=== PATIENT | female | born 1990 | race Caucasian/White ===

== ENCOUNTER 2017-06-21 19:09 | Emergency (ER) | payer OTHER ==
[~2017-06-21] VITALS: Ht 170.2 cm; Wt 72.0 kg
[2017-06-21 19:21] VITALS: BP 106/73; PULSE 57; RESP 14; O2SAT 100
--- NOTE | 2017-06-21 19:43 | PD ---
HPI Chief Complaint: Medical Clearance Time Seen by Provider: 19:22 Travel History International Travel<30 days: No Contact w/Intl Traveler<30days: No Traveled to known affect area: No History of Present Illness HPI Patient is a 26-year-old female presenting to the emergency department for medical clearance, patient is currently in the custody of law enforcement. She was brought in to have an evaluation after striking her head on the wall of the police vehicle. Patient reports a frontal headache, she rates her pain a 7 out of 10 and states as aching and throbbing. She also reports feeling dizzy. There was no loss of consciousness, no nausea, no vomiting. Patient denies any significant past medical history. PFSH Past Medical History Bipolar Disorder: Yes Anxiety: Yes Depression: Yes Diminished Hearing: No Psychiatric: Yes (MANIC DEPRESSIVE DISORDER ) ?: Unknown : 5 Para: 4 Miscarriage: 1 Past Surgical History Section: Yes ( X 4 ) Social History Alcohol Use: No Tobacco Use: No Substance Use: No (DENIES ) Allergies-Medications (Allergen,Severity, Reaction): Coded Allergies: No Known Allergies (Unverified , 06/21/17) Reported Meds & Prescriptions Reported Meds & Active Scripts Active No Active Prescriptions or Reported Medications Review of Systems Except as stated in HPI: all other systems reviewed are Neg General / Constitutional: Positive: Fever Eyes: No: Blurred Vision HENT: Positive: Headaches, Neck Pain Neurologic: Positive: Dizziness Physical Exam Narrative GENERAL: Well-developed, well-nourished, alert female. Resting comfortably in no acute distress. SKIN: Warm and dry. Small contusion to mid forehead HEAD: Atraumatic. Normocephalic. EYES: Pupils equal and round, reactive to light and accommodation. No scleral icterus. No injection or drainage. Extraocular movements are intact. ENT: No nasal bleeding or discharge. Mucous membranes pink and moist. NECK: Trachea midline. No JVD. Tenderness to palpation of her cervical spine and paraspinal musculature and cervical region. Full range of motion with rotation, flexion and extension. No meningeal signs noted. CARDIOVASCULAR: Regular rate and rhythm. RESPIRATORY: No accessory muscle use. Clear to auscultation. Breath sounds equal bilaterally. GASTROINTESTINAL: Abdomen soft, non-tender, nondistended. Hepatic and splenic margins not palpable. MUSCULOSKELETAL: Extremities without clubbing, cyanosis, or edema. No obvious deformities. NEUROLOGICAL: Awake and alert. No obvious cranial nerve deficits. Motor grossly within normal limits. Five out of 5 muscle strength in the arms and legs. Normal speech. PSYCHIATRIC: Appropriate mood and affect; insight and judgment normal. Data Data Last Documented VS Vital Signs Date Time Temp Pulse Resp B/P (MAP) Pulse Ox O2 Delivery O2 Flow Rate FiO2 06/21/17 20:16 98.1 06/21/17 19:21 57 14 106/73 (84) [address] Brain W/O Iv Contrast(Rout) (06/21/17 ) Ct Cerv Spine W/O Contrast (06/21/17 ) Ibuprofen (Motrin) (06/21/17 19:45) Ed Urine Pregnancytest Poc (06/21/17 19:35) MDM Medical Decision Making Medical Screen Exam Complete: Yes Emergency Medical Condition: Yes Interpretation(s) Vital Signs Date Time Temp Pulse Resp B/P (MAP) Pulse Ox O2 Delivery O2 Flow Rate FiO2 06/21/17 19:21 57 14 106/73 (84) 100 Differential Diagnosis Contusion versus concussion versus hemorrhage versus strain versus fracture versus other Narrative Course Patient is a 26-year-old female presenting for evaluation of possible head injury after striking her head while in police custody. Patient is neurologically intact, there is a small contusion to her forehead. CT scan ordered and pending, ibuprofen ordered for pain. Patient's vital signs are stable. Care of patient transferred to Dr. Feldman at the end of my shift. He will determine patients disposition. Scripts No Active Prescriptions or Reported Meds Maria Alejandra Bravo Jun 21, 2017 19:43
[2017-06-21] MEDS ORDERED: IBUPROFEN 800 MG TAB PO ONE (19:45)
[2017-06-21 20:15] VITALS: TEMP 97.8
[2017-06-21 20:16] VITALS: TEMP 98.1
--- NOTE | 2017-06-21 21:45 | RADRPT ---
EXAM DATE/TIME: 06/21/2017 21:16 [facility] COMPARISON: CT BRAIN W/O CONTRAST, September 26, 2016, 1:04. INDICATIONS : Trauma, hit head on metal plate multiple times. RADIATION DOSE: 33.17 CTDIvol (mGy) MEDICAL HISTORY : None SURGICAL HISTORY : section. ENCOUNTER: Initial ACUITY: 1 day PAIN SCALE: 5/10 LOCATION: cranial TECHNIQUE: Multiple contiguous axial images were obtained of the head. Using automated exposure control and adj ustment of the mA and/or kV according to patient size, radiation dose was kept as low as reasonably a chievable to obtain optimal diagnostic quality images. DICOM format image data is available electro nically for review and comparison. FINDINGS: CEREBRUM: The ventricles are normal for age. No evidence of midline shift, mass lesion, hemorrhage or acute in farction. No extra-axial fluid collections are seen. POSTERIOR FOSSA: The cerebellum and brainstem are intact. The 4th ventricle is midline. The cerebellopontine angle i s unremarkable. EXTRACRANIAL: The visualized portion of the orbits is intact. SKULL: The calvaria is intact. No evidence of skull fracture. CONCLUSION: No acute disease. Boris Jay MD on June 21, 2017 at 21:42 Board Certified Radiologist. This report was verified electronically.
--- NOTE | 2017-06-21 21:47 | RADRPT ---
EXAM DATE/TIME: 06/21/2017 21:16 [facility] COMPARISON: No previous studies available for comparison. INDICATIONS : Trauma, hit head multiple times on metal plate. RADIATION DOSE: 15.21 CTDIvol (mGy) MEDICAL HISTORY : None SURGICAL HISTORY : section. ENCOUNTER: Initial ACUITY: 1 day PAIN SCALE: 2/10 LOCATION: neck TECHNIQUE: Volumetric scanning of the cervical spine was performed. Multiplanar reconstructions in the sagittal, coronal and oblique axial planes were performed. Using automated exposure control and adjustment o f the mA and/or kV according to patient size, radiation dose was kept as low as reasonably achievable to obtain optimal diagnostic quality images. DICOM format image data is available electronically f or review and comparison. FINDINGS: Axial tomograms with multiplanar reformats were performed of the cervical spine without contrast. The craniocervical and cervical vertebral body alignment is intact. Vertebral bodies and posterior el ements are intact. The facet joints are satisfactory aligned. There are no soft tissue abnormalities. CONCLUSION: Normal CT of the cervical spine. Boris Jay MD on June 21, 2017 at 21:43 Board Certified Radiologist. This report was verified electronically.
--- NOTE | 2017-06-21 21:53 | PD ---
Data Data Last Documented VS Vital Signs Date Time Temp Pulse Resp B/P (MAP) Pulse Ox O2 Delivery O2 Flow Rate FiO2 06/21/17 20:16 98.1 06/21/17 19:21 57 14 106/73 (84) [address] Brain W/O Iv Contrast(Rout) (06/21/17 ) Ct Cerv Spine W/O Contrast (06/21/17 ) Ibuprofen (Motrin) (06/21/17 19:45) Ed Urine Pregnancytest Poc (06/21/17 19:35) MDM Medical Record Reviewed: Yes Supervised Visit with CAROLINE: Yes Narrative Course Head CT normal CT C-spine normal I, Dr. Feldman, have reviewed the advance practice practitioner's documentation and am in agreement unless otherwise dictated below, met with the patient face to face, made the diagnosis, and the medical decision making was done by me. *My assessment and Findings: Imaging unremarkable. Neurologic exam is unremarkable. The patient is suitable for discharge under law enforcement custody. Diagnosis Primary Impression: Minor head injury without loss of consciousness Qualified Codes: S09.90XA - Unspecified injury of head, initial encounter Additional Impression: Scalp contusion Qualified Codes: S00.03XA - Contusion of scalp, initial encounter Referrals: Primary Care Physician call for appointment Additional Instruction: You have a choice when it comes to health care, and we are glad that you chose [facility]. Hopefully, we have met your expectations on today's visit. You are welcome to return to [facility] at any time, as we are committed to meeting the health care needs of our community. Med/Other Pt SpecificInfo: No Change to Meds Scripts No Active Prescriptions or Reported Meds Disposition: [address] LAW ENFORCEMNT Condition: Stable Don Feldman MD Jun 21, 2017 21:53
== END 2017-06-21 22:14 ==
LOC: NEPD 19:09
DX: S00.03XA Contusion of scalp, initial encounter (principal); R42 Dizziness and giddiness; W22.09XA Striking against other stationary object, initial encounter
CPT/HCPCS: 70450; 72125; 84703; 99285

== ENCOUNTER 2017-09-06 16:05 | Emergency (ER) | payer OTHER ==
[~2017-09-06] VITALS: Ht 172.7 cm; Wt 65.0 kg
[2017-09-06 16:19] VITALS: BP 115/72; PULSE 77; RESP 17; TEMP 98.3; O2SAT 98
[2017-09-06 16:42] VITALS: RESP 18; O2SAT 99
[2017-09-06] MEDS ORDERED: SODIUM CHLORIDE 0.9% FLUSH 10 ML FLUSH IVF PRN (16:45)
[2017-09-06] MEDS ORDERED: ONDANSETRON ODT 4 MG TAB PO ONE (16:45)
--- NOTE | 2017-09-06 17:19 | PD ---
HPI Chief Complaint: Dizziness Time Seen by Provider: 16:38 Travel History International Travel<30 days: No Contact w/Intl Traveler<30days: No Traveled to known affect area: No History of Present Illness HPI 26 y female presents to emergency department with [place] [employer] complaining of lightheadedness, bilateral nosebleed, shortness of breath, and an episode of vomitus. States that she was in the back of the police car when she started developing these symptoms. Pt alledgedly was having a verbal altercation in a public park with her friend just before being picked up by the police. Patient denies any exacerbating problems to explain her current symptoms. Patient denies headache, blurred vision, recent travel, illicit drug use, or trauma. Patient denies fever, chills. Denies suicidal or homicidal ideations. Patient has a history of anxiety but does not take any medications. Denies any other medical issues or medication use. PFSH Past Medical History Bipolar Disorder: Yes Anxiety: Yes Depression: Yes Diminished Hearing: No Psychiatric: Yes (MANIC DEPRESSIVE DISORDER ) ?: Unknown : 5 Para: 4 Miscarriage: 1 Past Surgical History Section: Yes ( X 4 ) Social History Alcohol Use: No Tobacco Use: No Substance Use: No (DENIES ) Allergies-Medications (Allergen,Severity, Reaction): Coded Allergies: No Known Allergies (Unverified , 06/21/17) Reported Meds & Prescriptions Reported Meds & Active Scripts Active Zofran (Ondansetron HCl) 4 Mg Tab 4 Mg PO Q8HR PRN 7 Days Review of Systems Except as stated in HPI: all other systems reviewed are Neg Physical Exam Narrative GENERAL: Well-nourished, well-developed patient. SKIN: Focused skin assessment warm/dry. HEAD: Normocephalic. Atraumatic EYES: No scleral icterus. No injection or drainage. NOSE: No obvious trauma, controlled epistaxis likely from anterior source. THROAT: No pharyngeal exudates, or tonsillar hypertrophy. Airway is patent. Posterior pharynx appears mildly erythematous. NECK: Supple, trachea midline. No JVD or lymphadenopathy. CARDIOVASCULAR: Regular rate and rhythm without murmurs, gallops, or rubs. RESPIRATORY: Breath sounds equal bilaterally. No accessory muscle use. Diffuse rhonchi upper and lower lobes. GASTROINTESTINAL: Abdomen soft, non-tender, nondistended. Mild tenderness palpation of the right abdomen without rebound tenderness. MUSCULOSKELETAL: No cyanosis, or edema. BACK: Nontender without obvious deformity. No CVA tenderness. Data Data Last Documented VS Vital Signs Date Time Temp Pulse Resp B/P (MAP) Pulse Ox O2 Delivery O2 Flow Rate FiO2 09/06/17 19:15 09/06/17 16:42 18 99 Room Air 09/06/17 16:39 82 09/06/17 16:19 98.3 Orders Orders Electrocardiogram (09/06/17 16:38) Basic Metabolic Panel (Bmp) (09/06/17 16:38) Ed Urine Pregnancytest Poc (09/06/17 16:38) Complete Blood Count With Diff (09/06/17 16:38) Troponin I (09/06/17 16:38) Chest, Single Ap (09/06/17 16:38) Ecg Monitoring (09/06/17 16:38) Iv Access Insert/Monitor (09/06/17 16:38) Oximetry (09/06/17 16:38) Sodium Chloride 0.9% Flush (Ns Flush) (09/06/17 16:45) Ckmb (Isoenzyme) Profile (09/06/17 16:38) Orthostatic Blood Pressure (09/06/17 16:38) Ob/Psych Drug Screen, Urine (09/06/17 16:43) Ondansetron Odt (Zofran Odt) (09/06/17 16:45) Phenylephrine 0.5% Trevor Spr (Neosynephrin (09/06/17 17:30) CKMB (09/06/17 16:50) CKMB% (09/06/17 16:50) Ed Discharge Order (09/06/17 19:09) Labs Laboratory Tests Test 09/06/17 16:50 09/06/17 18:20 White Blood Count 9.9 TH/MM3 Red Blood Count 3.95 MIL/MM3 Hemoglobin 12.1 GM/DL Hematocrit 36.1 % Mean Corpuscular Volume 91.5 FL Mean Corpuscular Hemoglobin 30.7 PG Mean Corpuscular Hemoglobin Concent 33.5 % Red Cell Distribution Width 15.7 % Platelet Count 232 TH/MM3 Mean Platelet Volume 8.0 FL Neutrophils (%) (Auto) 75.6 % Lymphocytes (%) (Auto) 18.5 % Monocytes (%) (Auto) 4.7 % Eosinophils (%) (Auto) 0.8 % Basophils (%) (Auto) 0.4 % Neutrophils # (Auto) 7.5 TH/MM3 Lymphocytes # (Auto) 1.8 TH/MM3 Monocytes # (Auto) 0.5 TH/MM3 Eosinophils # (Auto) 0.1 TH/MM3 Basophils # (Auto) 0.0 TH/MM3 CBC Comment DIFF FINAL Differential Comment Blood Urea Nitrogen 15 MG/DL Creatinine 0.87 MG/DL Random Glucose 100 MG/DL Calcium Level 8.6 MG/DL Sodium Level 143 MEQ/L Potassium Level 4.0 MEQ/L Chloride Level 110 MEQ/L Carbon Dioxide Level 27.4 MEQ/L Anion Gap 6 MEQ/L Estimat Glomerular Filtration Rate 78 ML/MIN Total Creatine Kinase 119 U/L Creatine Kinase MB 1.3 NG/ML Troponin I LESS THAN 0.02 NG/ML Urine Opiates Screen NEG Urine Barbiturates Screen NEG Urine Amphetamines Screen NEG Urine Benzodiazepines Screen NEG Urine Cocaine Screen POS Urine Cannabinoids Screen NEG MDM Medical Decision Making Medical Screen Exam Complete: Yes Emergency Medical Condition: Yes Differential Diagnosis Spontaneous epistaxis versus nasal fracture versus digital trauma Narrative Course 26 y female presents to emergency department with [place] [employer] complaining of lightheadedness, bilateral nosebleed, shortness of breath, and an episode of vomitus. States that she was in the back of the police car when she started developing these symptoms. Pt alledgedly was having a verbal altercation in a public park with her friend just before being picked up by the police. Patient denies any exacerbating problems to explain her current symptoms. Patient denies headache, blurred vision, recent travel, illicit drug use, or trauma. Patient denies fever, chills. Denies suicidal or homicidal ideations. Patient has a history of anxiety but does not take any medications. Denies any other medical issues or medication use. Physical exam findings: controlled bleeding from nares, slight oozing. Mild pharyngeal injection without exudate. Epistaxis controlled with Kwan-Synephrine. EKG within normal limits Chest x-ray clear Labs WNL. UDS Positive for cocaine. Patient still denies cocaine use. No evidence of cardiopulmonary involvement of her lightheadedness. Vomiting likely secondary to gastric irritation of stomach, secondary to epistaxis caused by cocaine use. Pt advised to return to ED if symptoms persist or worsen. Discharged home. Diagnosis Primary Impression: Epistaxis Additional Impressions: Vomiting Qualified Codes: R11.2 - Nausea with vomiting, unspecified Cocaine use Referrals: [facility] Additional Instructions: Return to the emergency department if your symptoms persist or worsen Scripts Ondansetron (Zofran) 4 Mg Tab 4 MG PO Q8HR Y for NAUSEA OR VOMITING for 7 Days, TAB 0 Refills Prov: Jordyn Mon MD 09/06/17 Disposition: 01 DISCHARGE HOME Condition: Stable Kelley Gonzales Sep 06, 2017 17:19
[2017-09-06 17:23] LABS: AUTOMATED NEUTROPHIL # 7.5 TH/MM3 (1.8-7.7); BASOPHIL % 0.4 % (0.0-2.0); EOSINOPHIL # 0.1 TH/MM3 (0-0.4); EOSINOPHIL % 0.8 % (0.0-4.0); HEMATOCRIT 36.1 % (35.0-46.0); HEMO FLAGS DIFF FINAL; LYMPH % 18.5 % (9.0-44.0); LYMPHOCYTE # 1.8 TH/MM3 (1.0-4.8); MEAN CELL VOLUME 91.5 FL (80.0-100.0); MEAN CORPUSCULAR HEMOGLOBIN 30.7 PG (27.0-34.0); MEAN CORPUSCULAR HGB CONC 33.5 % (32.0-36.0); MONO % 4.7 % (0.0-8.0); NEUT % 75.6 % (16.0-70.0); PLATELET COUNT 232 TH/MM3 (150-450); RED BLOOD COUNT 3.95 MIL/MM3 (4.00-5.30); RED CELL DISTRIBUTION WIDTH 15.7 % (11.6-17.2); WHITE BLOOD COUNT 9.9 TH/MM3 (4.0-11.0)
[2017-09-06 17:29] LABS: ANION GAP 6 MEQ/L (5-15); BICARBONATE 27.4 MEQ/L (21.0-32.0); BLOOD UREA NITROGEN 15 MG/DL (7-18); CHLORIDE 110 MEQ/L (98-107); GLOMERULAR FILTRATION RATE 78 ML/MIN (>89); SODIUM (NA) 143 MEQ/L (136-145)
[2017-09-06] MEDS ORDERED: PHENYLEPHRINE HCL 0.5% NASAL SPRAY 15 ML BTL NASAL ONE (17:30)
[2017-09-06 17:33] LABS: CREATINE KINASE 119 U/L (26-192)
[2017-09-06 17:46] LABS: CKMB 1.3 NG/ML (0.5-3.6)
--- NOTE | 2017-09-06 17:46 | RADRPT ---
EXAM DATE/TIME: 09/06/2017 16:54 [facility] COMPARISON: No previous studies available for comparison. INDICATIONS : Palpitations, dizziness and vomiting MEDICAL HISTORY : None. SURGICAL HISTORY : section. ENCOUNTER: Initial ACUITY: 1 day PAIN SCORE: 0/10 LOCATION: chest FINDINGS: A single view of the chest demonstrates the lungs to be symmetrically aerated without evidence of mas s, infiltrate or effusion. The cardiomediastinal contours are unremarkable. Osseous structures are intact. CONCLUSION: No acute disease. Salinas Matthews MD FACR on September 06, 2017 at 17:44 Board Certified Radiologist. This report was verified electronically.
[2017-09-06] MEDS ORDERED: ZOFR4TAB PO (18:55)
--- NOTE | 2017-09-07 18:37 | EKG ---
Date Performed: 09/06/2017 Time Performed: 16:55:44 PTAGE: 26 years EKG: Sinus rhythm NORMAL ECG NO PREVIOUS TRACING DOCTOR: Heather Vitale Interpretating Date/Time 09/07/2017 18:34:58
[2017-09-09 13:26] LABS: BATH SALTS (MDPV) UR NEG (NEG); ECSTASY (MDMA) UR NEG (NEG); HEROIN (6-ACETYLMORPHINE) UR NEG (NEG); K2 SPICE UR NEG (NEG); OBGABAPENTIN UR NEG (NEG); OBHYDROMORPHONE U NEG (NEG); OBMETHADONE UR NEG (NEG); PHENCYCLIDINE URINE NEG (NEG)
== END 2017-09-06 19:16 | disposition home or self-care (01) ==
LOC: NEPD 16:05
DX: R04.0 Epistaxis (principal); R11.2 Nausea with vomiting, unspecified; R06.02 Shortness of breath; F14.90 Cocaine use, unspecified, uncomplicated
CPT/HCPCS: 71010; 80048; 80307; 82550; 82552; 84484; 84703; 85025; 93005; 99285; G0481

== ENCOUNTER 2017-12-08 13:46 | Emergency (ER) | payer OTHER ==
[~2017-12-08] VITALS: Ht 172.7 cm; Wt 68.0 kg
[~2017-12-08 13:46] MED LIST: ZOFR4TAB PO
[2017-12-08 13:47] VITALS: BP 131/76; PULSE 101; RESP 20; TEMP 99; O2SAT 100
--- NOTE | 2017-12-08 18:28 | PD ---
Physical Exam Date Seen by Provider: Dec 08, 2017 Time Seen by Provider: 14:33 Narrative 26 year old female presents to the emergency department for evaluation of productive cough and congestion for 6 days. Data Data Last Documented VS Vital Signs Date Time Temp Pulse Resp B/P (MAP) Pulse Ox O2 Delivery O2 Flow Rate FiO2 12/08/17 13:47 99.0 101 20 131/76 (94) 100 Room Air MDM Supervised Visit with CAROLINE: No Narrative Course 26-year-old female presents to the emergency department for evaluation of cold symptoms for 6 days. Patient is initially seen in triage. She left AGAINST MEDICAL ADVICE before she could be moved to a medical bed. Diagnosis Primary Impression: Left against medical advice Patient Instructions: General Instructions Departure Forms: Tests/Procedures Disposition: 07 AGAINST MEDICAL ADVICE Vesna Harley Dec 08, 2017 18:28
== END 2017-12-08 21:35 | disposition left against medical advice (07) ==
LOC: NED 13:46
DX: Z53.21 Procedure and treatment not carried out due to patient leaving prior to being seen by health care provider (principal)
CPT/HCPCS: 99281